=== PATIENT | female | born 1985 | race Caucasian/White ===

== ENCOUNTER 2022-04-19 15:57 | Inpatient (IN) ==
[2022-04-19] MEDS ORDERED: FLUARIX QUADRIVALENT 0.5 ML SYR IM ONE (16:53)
[2022-04-19] MEDS ORDERED: SODIUM CHLORIDE 0.9% 250 ML IV PRN (16:54)
[2022-04-19] MEDS ORDERED: LIDOCAINE 1% LOCAL 20 ML VIAL INFIL PRN (17:56)
[2022-04-19] MEDS ORDERED: OXYTOCIN 30 UNITS/500 ML BAG IV PRN (17:56)
[2022-04-19] MEDS ORDERED: DINOPROSTONE 10 MG INSERT PV ONE (18:12)
--- NOTE | 2022-04-19 18:18 | History & Physical Report ---
Date of Service April 19, 2022 Assessment & Plan Admission and Anticipated Discharge Date Admission Date: April 19, 2022 History of Present Illness Chief Complaint: induction of labor for Class 3 obesity Primary Care Provider: PAM PCP 37 F P1001 at 37 weeks admitted for Class 3 obesity, AMA, history of macrosomia and gestational hypertension Allergies Allergy/AdvReac Type Severity Reaction Status Date / Time cefuroxime [From Ceftin] Allergy Hives Verified 04/19/22 16:13 Home Medications Medication Instructions Recorded Confirmed Type aspirin 81 mg tablet,delayed 81 mg PO DAILY 04/19/22 04/19/22 History release cetirizine 10 mg tablet (Zyrtec) 20 mg PO DAILY 04/19/22 04/19/22 History diphenhydramine HCl 50 mg capsule 50 mg PO HS 04/19/22 04/19/22 History diphenhydramine HCl 50 mg capsule 50 mg PO HS 04/19/22 04/19/22 History (Unisom SleepGels) labetalol 100 mg tablet 100 mg PO BID 04/19/22 04/19/22 History omeprazole 40 mg capsule,delayed 40 mg PO DAILY 04/19/22 04/19/22 History release prenat.vits,delores,ntw-nebc-owtly 1 tab PO DAILY 04/19/22 04/19/22 History sertraline 100 mg tablet (Zoloft) 150 mg PO DAILY 04/19/22 04/19/22 History Patient History Medical History Anxiety Gastroparesis GERD (gastroesophageal reflux disease) H/O retained foreign body fully removed L upper arm Irritable bowel syndrome Surgical History H/O wisdom tooth extraction Hx of cholecystectomy Hx of tonsillectomy Family History Father Myocardial infarction Father Pulmonary fibrosis Social History Smoking Status: Never smoker Hx Alcohol Use: No Hx Substance Use: No Preferred Language: Chinese Communication Ability: Effective Visual Impairment: Partially Limited Hearing Ability: Normal 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 Beliefs That Will Affect Care: None marital status: Current Living Situation Comment: , 1 son and 3 stepsons, 2 dogs and 4 cats current occupational status: employed 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 [place] Other Information That Helps Us Care for You: No Feels Safe at Home: Yes Safety Concerns: Feels Safe At This Time Gender Identity: Female Assistive Devices: Glasses OB History x1 with macrosomia INFANTRYMAN History neg Review of Systems All systems reviewed & are unremarkable except as noted in HPI & below Physical Exam Constitutional: WD/WN, vitals as above Eyes: PERRL, conjunctivae normal, anicteric sclerae Respiratory: normal respiratory effort, lungs clear to auscultation Cardiovascular: RRR, no murmur, no edema Gastrointestinal (Abdomen): normal bowel sounds, soft, nontender, no hepatosplenomegaly Musculoskeletal: Extremities: extremities normal to inspection Skin: no rashes, warm and dry Neurologic: patellar DTR's 2+ bilat, sensation intact Psychiatric: A+Ox3, euthymic affect Genitourinary: OB Exam Abdomen: + estimated weight (9 lbs) Manual OB Exam: + cervical dilation fingertip, + cervical effacement 50% and + station high OB Exam Monitor Tracing: + external FHT monitor used, + external uterine monitor used, + category I and + normal FHT variability Cervix posterior and firm Results & Data ([facility]) Vital Signs (Past 12 Hours) Vital Signs Temp Pulse Resp BP 04/19/22 16:32 36.9 C 20 04/19/22 16:30 117 H 04/19/22 16:30 154/80 H 04/19/22 16:02 36.9 C 125 H 20 135/99 Monitoring External Monitor Cat 1
[2022-04-19 18:19] LABS: Hematocrit (blood only) 37.1 % (34.1-44.9); Hemoglobin 12.4 g/dl (12.0-16.0); Mean Corpuscular Hemoglobin 31.9 pg (25.0-34.0); Mean Corpuscular Hgb Conc 33.4 g/dL (32.0-36.0); Mean Corpuscular Volume 95.4 fL (80.0-100.0); Mean Platelet Volume 12.1 fL (9.4-12.3); Platelet Count 210 K/uL (130-400); RDW Coefficient of Variation 13.7 % (11.5-14.5); RDW Standard Deviation 47.9 fL (36.4-46.3); Red Blood Count 3.89 M/uL (3.93-5.22); White Blood Count 9.35 K/ul (4.8-10.8)
--- NOTE | 2022-04-19 18:30 | Labor Progress Brief Note ---
Date of Service April 19, 2022 Assessment & Plan Admission and Anticipated Discharge Date Admission Date: April 19, 2022 Physical Exam Genitourinary: OB Exam Monitor Tracing: + external FHT monitor used, + external uterine monitor used, + category I and + normal FHT variability Cervidil 10 mg placed vaginally Results & Data ([facility]) Vital Signs (Past 12 Hours) Vital Signs Temp Pulse Resp BP 04/19/22 16:32 36.9 C 20 04/19/22 16:30 117 H 04/19/22 16:30 154/80 H 04/19/22 16:02 36.9 C 125 H 20 135/99
[2022-04-19] MEDS ORDERED: BUTORPHANOL TARTRATE 1 MG/ML VIAL IV PRN (18:31)
[2022-04-19] MEDS ORDERED: LABETALOL HCL IV 5 MG/ML 20ML IV ONE (18:54)
[2022-04-19] MEDS ORDERED: LABETALOL HCL IV 5 MG/ML 20ML IV STA (19:00)
[2022-04-19 19:43] LABS: Alanine Aminotransferase 9 U/L (7-52); Albumin Globulin Ratio 1.1 (0.9-2); Albumin Level 3.3 gm/dl (3.4-5.0); Alkaline Phosphatase 73 U/L (34-104); Anion Gap 10 (3-11); Aspartate Aminotransferase 12 U/L (13-39); BUN Creatinine Ratio 17.8 (10-20); Bilirubin,Total 0.2 mg/dl (0.2-1.0); Blood Urea Nitrogen 8 mg/dl (6-23); Calcium 9.2 mg/dl (8.5-10.1); Carbon Dioxide 22 mmol/L (21-32); Chloride 104 mmol/L (98-107); Creatinine Clr Calc Pharmacy 257.7 ml/min; Est GFR (African American) > 150.0 ml/min; Est GFR (Non-African American) 129.8 ml/min; Glucose 85 mg/dl (70-99(Fasting)); Potassium 4.1 mmol/L (3.5-5.1); Sodium 136 mmol/L (136-145); Total Protein 6.3 gm/dl (6.0-8.3); Uric Acid 5.7 mg/dl (2.6-7.2)
[2022-04-19] MEDS: LABETALOL HCL 100 MG TAB PO SCH (20:15)
[2022-04-19 22:44] LABS: Creatinine Urine Random 116.8 mg/dl; Protein Creatinine Ratio Urine 0.2 (0-0.2); Total Protein Urine Random 25.3 mg/dl (0-11.9)
[2022-04-20] MEDS ORDERED: SERTRALINE HCL 50 MG TABLET PO ONE (08:14)
--- NOTE | 2022-04-20 08:24 | Obstetrical Progress Note ---
Date of Service April 20, 2022 Assessment & Plan Admission and Anticipated Discharge Date Admission Date: April 19, 2022 Subjective Patient is seen and examined. I have reviewed her records from [facility]. She is a 37-year-old -0-0-1 at 37 weeks and 1 day gestation admitted yesterday by Dr. Torre for induction of labor for gestational hypertension, LGA, estimated weight has been measuring more than 99 percentile ultrasounds have been done by [facility]. Patient denies headaches, change in her vision, nausea vomiting, contractions, leakage of fluid, vaginal bleeding. She received Cervidil last night and it was removed this morning. she feels irregular back pain. Patient delivered 8 pound 15 ounce baby 10 years ago with no history of shoulder dystocia. Her last ultrasound with this was 2 weeks ago and baby was measuring 8 pound 14 ounce, over 99th percentile. She had ultrasounds every 4 weeks and they have been all measuring over 99th percentile. I estimated the weight by Tip's over 10 pounds. Performed bedside ultrasound head and abdominal circumference are measuring more than 99 percentile, 41 weeks, Unable to find femur at properly, with smaller measurements, medial weight was 4500 g. I reviewed her ultrasounds and they have been measuring femur significantly smaller than head and abdominal circumference. The plan to order official ultrasound for further measurements. I reviewed her medical, surgical history, She is asking for if baby is large. We discussed that is a major surgery with risks of bleeding infection injury to surrounding organs increased risk of DVT, PE. She states this is her last baby. Vaginal exam, cervix is fingertip, thick, high, unable to feel presenting part. All questions were answered. Results & Data ([facility]) Vital Signs (Past 12 Hours) Vital Signs Temp Pulse Resp BP 04/20/22 06:34 93 H 139/91 04/20/22 04:17 94 H 154/98 H 04/20/22 02:54 18 04/20/22 02:54 37.1 C 18 04/20/22 02:54 18 04/20/22 02:54 37.1 C 18 04/20/22 02:55 88 166/94 H 04/20/22 02:50 97 H 143/89 H 04/20/22 02:19 97 H 142/90 H 04/20/22 01:50 98 H 164/96 H 04/20/22 01:18 94 H 167/99 H 04/20/22 00:39 100 H 139/95 04/19/22 23:37 100 H 132/81 04/19/22 22:46 18 04/19/22 22:46 37.3 C 18 04/19/22 22:45 97 H 164/92 H 04/19/22 22:34 100 H 164/90 H 04/19/22 22:18 106 H 161/84 H 04/19/22 22:03 103 H 160/86 H 04/19/22 21:48 102 H 159/87 H 04/19/22 21:32 104 H 177/99 H 04/19/22 20:39 103 H 165/92 H 04/19/22 20:35 99 H 156/89 H 04/19/22 20:25 103 H 146/94 H
[2022-04-20] MEDS: LABETALOL HCL 100 MG TAB PO SCH ×2 (08:36→20:42)
--- NOTE | 2022-04-20 09:45 | Obstetrical Progress Note ---
Date of Service April 20, 2022 Assessment & Plan Admission and Anticipated Discharge Date Admission Date: April 19, 2022 Subjective Patient is back from [place]. EFW: 4307 gr +/- 600+ grams Discussed ACOG recommendation of trial of if estimated weight is less than 5000 g without diabetes and 4500 g with diabetes. Patient was tested/screened for gestational diabetes x2 and both were negative. Discussed ultrasound is not 100%, there is up to 15% error rate. Discussed trial of , induction of labor with prostaglandins and what to expect. Patient understands C section is a major surgery, with risks including but not limited to bleeding , infection, injury to surrounding organs like bowels, bladder, ureters, adhesions, scarring, wound infection, blood cloths in legs/ lungs, longer recovery. She wants to think about it and decide. All questions were answered. Results & Data ([facility]) Vital Signs (Past 12 Hours) Vital Signs Temp Pulse Resp BP 04/20/22 08:33 22 04/20/22 08:33 37.2 C 22 04/20/22 08:35 108 H 164/79 H 04/20/22 06:34 93 H 139/91 04/20/22 04:17 94 H 154/98 H 04/20/22 02:54 18 04/20/22 02:54 37.1 C 18 04/20/22 02:54 18 04/20/22 02:54 37.1 C 18 04/20/22 02:55 88 166/94 H 04/20/22 02:50 97 H 143/89 H 04/20/22 02:19 97 H 142/90 H 04/20/22 01:50 98 H 164/96 H 04/20/22 01:18 94 H 167/99 H 04/20/22 00:39 100 H 139/95 04/19/22 23:37 100 H 132/81 04/19/22 22:46 18 04/19/22 22:46 37.3 C 18 04/19/22 22:45 97 H 164/92 H 04/19/22 22:34 100 H 164/90 H 04/19/22 22:18 106 H 161/84 H 04/19/22 22:03 103 H 160/86 H 04/19/22 21:48 102 H 159/87 H
[2022-04-20] MEDS ORDERED: BUTORPHANOL TARTRATE 1 MG/ML VIAL IV PRN (10:25)
--- NOTE | 2022-04-20 10:25 | Obstetrical Progress Note ---
Date of Service April 20, 2022 Assessment & Plan Admission and Anticipated Discharge Date Admission Date: April 19, 2022 Subjective After discussing risks and benefits of each route of delivery patient decided for trial of labor. We discussed the risks of shoulder dystocia and unpredictability of it. Plan to have her breakfast and start PO Cytotec. Results & Data ([facility]) Vital Signs (Past 12 Hours) Vital Signs Temp Pulse Resp BP 04/20/22 08:33 22 04/20/22 08:33 37.2 C 22 04/20/22 08:35 108 H 164/79 H 04/20/22 06:34 93 H 139/91 04/20/22 04:17 94 H 154/98 H 04/20/22 02:54 18 04/20/22 02:54 37.1 C 18 04/20/22 02:54 18 04/20/22 02:54 37.1 C 18 04/20/22 02:55 88 166/94 H 04/20/22 02:50 97 H 143/89 H 04/20/22 02:19 97 H 142/90 H 04/20/22 01:50 98 H 164/96 H 04/20/22 01:18 94 H 167/99 H 04/20/22 00:39 100 H 139/95 04/19/22 23:37 100 H 132/81 04/19/22 22:46 18 04/19/22 22:46 37.3 C 18 04/19/22 22:45 97 H 164/92 H 04/19/22 22:34 100 H 164/90 H
--- NOTE | 2022-04-20 10:35 | Ultrasound Report ---
US OB limited HISTORY: 37 years-old Female Large for GA, >99th percentile COMPARISON: None TECHNIQUE: Multiple real-time sonographic images of the deep pelvic structures were obtained transabd ominally assessing grayscale appearance FINDINGS: Single living intrauterine gestation with heart rate of 143 bpm in cephalic positioning. BPD is 10.01 cm, 41 weeks 1 day. Head circumference is 37.06 cm. Abdominal circumference is 37.61 cm, 41 we eks 4 days. Femur length is 7.39 cm, 37 weeks 6 days. Estimated weight is 4306 g (9 lbs. 8 oz.) . kidneys measure up to 5.1 cm. IMPRESSION: Single living intrauterine gestation in cephalic positioning with measurements as a tomy. ACT 112: Negative or not required by law. The above report was generated using voice recognition software. It may contain grammatical, syntax o r spelling errors. Electronically signed by: Rashaun Espinal M.D. 04/20/2022 10:34 AM
[2022-04-20] MEDS: miSOPROStoL 50 MCG TAB PO SCH ×4 (11:49→20:15)
[2022-04-20] MEDS ORDERED: PANTOprazole 40 MG TAB PO ONE (19:30)
--- NOTE | 2022-04-20 22:38 | Obstetrical Progress Note ---
Date of Service April 20, 2022 Assessment & Plan Admission and Anticipated Discharge Date Admission Date: April 19, 2022 Subjective Attempted to see her now ut was told by her nurse that she is sleeping and is due for monitoring at 23:15. She received 3 doses of Cytotec and ambulated in hallways for the most of the day. FHR categ I Will check her at 23: [address] coyle bulb and start Oxytocin Results & Data ([facility]) Vital Signs (Past 12 Hours) Vital Signs Temp Pulse Resp BP O2 Del Method 04/20/22 19:03 18 04/20/22 19:03 Room Air 04/20/22 16:16 37.2 C 20 04/20/22 21:00 18 04/20/22 21:00 36.4 C L 18 04/20/22 20:42 90 143/72 H 04/20/22 19:01 100 H 164/82 H 04/20/22 15:57 107 H 145/82 H 04/20/22 15:24 105 H 144/85 H 04/20/22 14:19 108 H 162/90 H 04/20/22 11:48 37.1 C 109 H 20 143/87 H
[2022-04-20] MEDS ORDERED: OXYTOCIN 30 UNITS/500 ML BAG IV PRN (23:21)
[2022-04-21] MEDS: LACTATED RINGER'S 1,000 ML IV PRN ×3 (00:30→12:31)
[2022-04-21] MEDS ORDERED: OXYTOCIN 30 UNITS/500 ML BAG IV PRN ×2 (00:48→22:16)
--- NOTE | 2022-04-21 00:51 | Obstetrical Progress Note ---
Date of Service April 21, 2022 Assessment & Plan Admission and Anticipated Discharge Date Admission Date: April 19, 2022 Subjective Patient was placed in lithotomy position and spekulum was placed in vagina. Cervix was seen and cleaned with Betadinex3. 22 F catheter is placed into cervical canal and inflated with 40 ml of sterile water. FHR categ I Plan to start low dose Oxytocin per protocol. Continue to monitor closely. Results & Data ([facility]) Vital Signs (Past 12 Hours) Vital Signs Temp Pulse Resp BP O2 Del Method 04/20/22 19:03 18 04/20/22 19:03 Room Air 04/20/22 16:16 37.2 C 20 04/21/22 00:32 96 H 134/72 04/20/22 21:00 18 04/20/22 21:00 36.4 C L 18 04/20/22 20:42 90 143/72 H 04/20/22 19:01 100 H 164/82 H 04/20/22 15:57 107 H 145/82 H 04/20/22 15:24 105 H 144/85 H 04/20/22 14:19 108 H 162/90 H
[2022-04-21] MEDS: miSOPROStoL 50 MCG TAB PO SCH ×3 (01:09→16:07)
--- NOTE | 2022-04-21 07:45 | Obstetrical Progress Note ---
Date of Service April 21, 2022 Assessment & Plan Admission and Anticipated Discharge Date Admission Date: April 19, 2022 Subjective Patient is reevaluated She is painful and asking for epidural. Burns bulb came out at 03;35 She has been on Oxytocin and has received Stadol one time. FHR categ I VE; 3-4 cm/ 50%/ -4 Epidural for pain and continue raising Oxytocin after Continue to monitor closely Results & Data ([facility]) Vital Signs (Past 12 Hours) Vital Signs Temp Pulse Resp BP Pulse Ox 04/21/22 07:15 36.9 C 20 04/21/22 07:38 89 96 04/21/22 07:34 92 H 86 L 04/21/22 07:33 92 H 96 04/21/22 07:28 95 H 96 04/21/22 07:23 96 H 96 04/21/22 07:18 101 H 95 04/21/22 07:13 90 97 04/21/22 07:10 90 147/80 H 04/21/22 07:08 94 H 96 04/21/22 07:03 95 H 98 04/21/22 06:58 91 H 96 04/21/22 06:53 93 H 97 04/21/22 06:48 90 98 04/21/22 06:43 92 H 97 04/21/22 06:38 95 H 98 04/21/22 06:24 89 100 04/21/22 06:23 90 143/74 H 04/21/22 06:19 94 H 98 04/21/22 06:14 90 98 04/21/22 06:09 89 96 04/21/22 06:04 90 97 04/21/22 06:00 18 04/21/22 06:00 18 04/21/22 05:59 91 H 95 04/21/22 05:30 18 04/21/22 05:30 18 04/21/22 05:54 86 95 04/21/22 05:49 92 H 93 04/21/22 05:44 88 95 04/21/22 05:39 94 H 94 04/21/22 05:34 93 H 94 04/21/22 05:29 91 H 95 04/21/22 05:00 18 04/21/22 05:00 18 04/21/22 05:24 88 95 04/21/22 05:19 93 H 94 04/21/22 05:14 91 H 94 04/21/22 05:09 94 H 94 04/21/22 05:06 86 159/84 H 04/21/22 05:05 95 H 94 04/21/22 05:04 92 H 96 04/21/22 04:59 86 93 04/21/22 04:54 90 93 04/21/22 04:49 88 92 04/21/22 04:44 91 H 92 04/21/22 04:39 90 93 04/21/22 04:30 18 04/21/22 04:30 18 04/21/22 04:34 83 93 04/21/22 04:29 85 93 04/21/22 04:24 86 92 04/21/22 04:19 79 93 04/21/22 04:14 75 93 04/21/22 04:05 18 04/21/22 04:05 18 04/21/22 04:11 84 94 04/21/22 04:09 95 H 97 04/21/22 04:04 93 H 97 04/21/22 03:50 20 04/21/22 03:50 36.7 C 20 04/21/22 03:49 96 H 136/79 04/21/22 02:30 20 04/21/22 02:30 20 04/21/22 02:31 88 140/67 04/21/22 02:00 18 04/21/22 02:00 18 04/21/22 01:30 18 04/21/22 01:30 18 04/21/22 01:32 77 137/74 04/21/22 01:00 18 04/21/22 01:00 18 04/21/22 00:32 96 H 134/72 04/20/22 21:00 18 04/20/22 21:00 36.4 C L 18 04/20/22 20:42 90 143/72 H
[2022-04-21] MEDS ORDERED: SODIUM CHLORIDE 0.9% INJ 10 ML VIAL ONE (08:19)
[2022-04-21] MEDS ORDERED: BUPIVACAINE 0.25% 30 ML VIAL ONE (08:19)
[2022-04-21] MEDS ORDERED: fentaNYL citrate 100 MCG/2 ML VIAL ONE (08:19)
[2022-04-21] MEDS ORDERED: LIDOCAINE 2%/EPINEPHRINE 1:200,000 20 ML SDV ONE (08:19)
[2022-04-21] MEDS ORDERED: ePHEDrine sulfate 50 MG/ML AMP ONE (08:19)
[2022-04-21] MEDS ORDERED: fentaNYL 2MCG/ML ROPIVACAINE 1.25MG/ML 100 ML BAG EPI ONE (08:20)
[2022-04-21] MEDS ORDERED: HYDROmorphone INJ 2 MG/ML SYR/VIAL IV PRN (08:43)
[2022-04-21] MEDS ORDERED: fentaNYL citrate 100 MCG/2 ML VIAL IV PRN (08:43)
[2022-04-21] MEDS ORDERED: ATROPINE SULFATE 0.1 MG/ML 10ML SYR IV PRN (08:43)
[2022-04-21] MEDS ORDERED: ePHEDrine sulfate 50 MG/ML AMP IV PRN ×2 (08:43→08:46)
[2022-04-21] MEDS ORDERED: ONDANSETRON INJ 2 MG/ML 2 ML VIAL IV PRN ×2 (08:43→08:46)
--- NOTE | 2022-04-21 08:43 | Anesthesiology Consultation ---
Date of Service April 21, 2022 Assessment & Plan ASA ASA3 Proposed Anesthesia Anesthesia Type: Labor Epidural Risk / Benefits Reviewed With: PT / POA / Parent / Guardian, Accepts Plan and Informed Consent Obtained History Height/Weight Height: 5 ft 2 in Weight: 158.757 kg Allergies Allergy/AdvReac Type Severity Reaction Status Date / Time cefuroxime [From Ceftin] Allergy Hives Verified 04/19/22 16:13 Medications Home Medications Medication Instructions Recorded Confirmed Last Taken aspirin 81 mg tablet,delayed 81 mg PO DAILY 04/19/22 04/19/22 04/18/22 21:00 release cetirizine 10 mg tablet (Zyrtec) 20 mg PO DAILY 04/19/22 04/19/22 04/18/22 21:00 diphenhydramine HCl 50 mg capsule 50 mg PO HS 04/19/22 04/19/22 04/18/22 21:00 diphenhydramine HCl 50 mg capsule 50 mg PO HS 04/19/22 04/19/22 04/18/22 21:00 (Unisom SleepGels) labetalol 100 mg tablet 100 mg PO BID 04/19/22 04/19/22 04/18/22 21:00 omeprazole 40 mg capsule,delayed 40 mg PO DAILY 04/19/22 04/19/22 04/18/22 21:00 release prenat.vits,delores,klq-xmam-jjfgk 1 tab PO DAILY 04/19/22 04/19/22 04/18/22 21:00 sertraline 100 mg tablet (Zoloft) 150 mg PO DAILY 04/19/22 04/19/22 04/18/22 21:00 Active Medications Generic Name Dose Route Start Last Admin Trade Name Freq PRN Reason Stop Dose Admin Butorphanol Tartrate 1 mg 04/20/22 10:25 04/21/22 04:06 Butorphanol Tartrate 1 Mg/Ml Vial IV 05/20/22 10:24 1 mg Q2HWA PRN Administration Pain Lactated Ringer's 1,000 mls @ 125 mls/hr 04/19/22 17:56 04/21/22 09:13 Lr IV 04/21/22 17:55 Infused .Q8H PRN Infusion L&D Protocol Protocol Oxytocin 30 units in 500 mls @ 7 mls/hr 04/21/22 00:48 10/22/22 06:45 Pitocin IV 04/23/22 00:47 0.42 units/hr .Q24H PRN 7 mls/hr Labor Induction/Augmentation Titration Protocol 0.42 UNITS/HR Labetalol HCl 100 mg 04/19/22 21:00 04/20/22 20:42 Labetalol Hcl 100 Mg Tab PO 05/19/22 20:59 100 mg BID SHARRON Administration Misoprostol 50 mcg 04/20/22 11:00 04/21/22 04:13 Misoprostol 50 Mcg Tab PO 05/20/22 10:59 Not Given Q4 SHARRON Ropivacaine 100 ml 04/21/22 08:46 04/21/22 09:14 Fentanyl 2mcg/Ml Ropivacaine 1.25mg/Ml 100 Ml Bag EPI 04/22/22 08:45 100 ml PRN PRN Administration Pain R/T Labor Protocol Sertraline HCl 150 mg 04/21/22 09:00 04/21/22 09:29 Sertraline Hcl 50 Mg Tablet PO 05/21/22 08:59 150 mg QAM SHARRON Administration Past Medical History Medical History Anxiety Gastroparesis GERD (gastroesophageal reflux disease) H/O retained foreign body fully removed L upper arm Irritable bowel syndrome Exercise / Class Metabolic Activity II 4-5 Yardwork/Stairs/Walk up hill Past Family History Family History Father Myocardial infarction Father Pulmonary fibrosis Past Surgical History Surgical History H/O wisdom tooth extraction Hx of cholecystectomy Hx of tonsillectomy Past Anesthesia History No Hx of Anesthesia Complications and No Family Hx of Anesthesia Complications History of PONV No Hx of PONV and No Hx of Motion Sickness Social History Smoking Status: Never smoker Hx Alcohol Use: No Hx Substance Use: No substance use type: does not use Review of Systems denies fever/cough/ colds/ chest pain/ SOB/ RISA denies RISA Physical Exam Vital Signs Last Vital Signs Temp 36.9 C 04/21/22 07:15 Pulse 95 H 04/21/22 09:50 Resp 20 04/21/22 07:15 BP 129/73 04/21/22 09:43 Pulse Ox 93 04/21/22 09:50 O2 Del Method 04/20/22 19:03 ENMT Mouth: no TMJ abnormality and no dentition abnormality Thyromental Distance: > or= 3.5 Finger Breadths Mallampati Class: II Neck neck extension not limited Respiratory normal respiratory effort; no respiratory distress Auscultation: lungs clear to auscultation bilaterally Cardiovascular Rate/Rhythm: regular rate and regular rhythm Neurologic moves all extremities Psychiatric Orientation: alert and oriented x 3 Testing Laboratory Results 04/19/22 17:05 04/19/22 18:59 Blood Type A Positive 04/19/22 17:05 Antibody Screen NEGATIVE 04/19/22 17:05
[2022-04-21] MEDS ORDERED: NALBUPHINE HCL INJ 10 MG/ML AMP IV PRN (08:46)
[2022-04-21] MEDS ORDERED: NALOXONE HCL 1 MG in SODIUM CHLORIDE 0.9% 1000ML 1,000 ML IV PRN (08:46)
[2022-04-21] MEDS ORDERED: NALOXONE HCL 0.4 MG/1 ML VIAL/CARP IV PRN (08:46)
[2022-04-21] MEDS ORDERED: diphenhydrAMINE 50 MG/ML VIAL IV PRN (08:46)
[2022-04-21] MEDS: fentaNYL 2MCG/ML ROPIVACAINE 1.25MG/ML 100 ML BAG EPI PRN ×3 (09:14→21:36)
[2022-04-21] MEDS: SERTRALINE HCL 50 MG TABLET PO SCH (09:29)
[2022-04-21] MEDS: LABETALOL HCL 100 MG TAB PO SCH ×2 (10:13→22:32)
--- NOTE | 2022-04-21 14:49 | Labor Progress Brief Note ---
Date of Service April 21, 2022 Assessment & Plan Admission and Anticipated Discharge Date Admission Date: April 19, 2022 Physical Exam Genitourinary: Manual OB Exam: + cervical dilation 3 cm and 4 cm, + cervical effacement 60% and + station high OB Exam Monitor Tracing: + external FHT monitor used, + external uterine monitor used, + category I and + normal FHT variability Results & Data ([facility]) Vital Signs (Past 12 Hours) Vital Signs Temp Pulse Resp BP Pulse Ox 04/21/22 07:15 36.9 C 20 04/21/22 14:48 101 H 96 04/21/22 14:44 100 H 151/74 H 04/21/22 14:43 88 151/68 H 96 04/21/22 14:38 100 H 95 04/21/22 14:33 93 H 96 04/21/22 14:28 99 H 96 04/21/22 14:29 95 H 151/72 H 04/21/22 14:23 89 96 04/21/22 14:18 85 94 04/21/22 14:14 92 H 142/69 H 04/21/22 14:13 95 H 93 04/21/22 14:08 89 94 04/21/22 14:03 90 95 04/21/22 13:58 85 04/21/22 13:58 87 133/64 94 04/21/22 13:53 96 H 93 04/21/22 13:48 91 H 94 04/21/22 13:44 112 H 140/108 H 04/21/22 13:43 102 H 95 04/21/22 13:41 89 89 L 04/21/22 13:38 98 H 87 L 04/21/22 13:36 83 89 L 04/21/22 13:33 104 H 95 04/21/22 13:30 79 14 85 L 04/21/22 13:28 106 H 04/21/22 13:28 92 H 145/77 H 88 L 04/21/22 13:24 94 H 88 L 04/21/22 13:23 98 H 94 04/21/22 13:19 99 H 88 L 04/21/22 13:18 97 H 90 04/21/22 13:14 89 144/75 H 04/21/22 13:13 91 H 96 04/21/22 13:08 94 H 96 04/21/22 13:03 94 H 96 04/21/22 12:58 103 H 04/21/22 12:58 93 H 146/68 H 96 04/21/22 12:53 94 H 95 04/21/22 12:48 93 H 96 04/21/22 12:43 87 138/67 96 04/21/22 12:38 92 H 94 04/21/22 12:33 108 H 97 04/21/22 12:28 95 H 151/73 H 04/21/22 12:13 88 134/74 04/21/22 12:00 16 04/21/22 12:00 16 04/21/22 11:58 86 132/72 04/21/22 11:45 36.6 C 97 H 100 04/21/22 11:42 114 H 84 L 04/21/22 11:40 103 H 98 04/21/22 11:35 105 H 100 04/21/22 11:30 102 H 16 132/70 98 04/21/22 11:25 93 H 97 04/21/22 11:20 109 H 98 04/21/22 11:15 104 H 98 04/21/22 11:13 109 H 122/62 04/21/22 11:10 106 H 98 04/21/22 11:05 103 H 99 04/21/22 11:00 91 H 16 94 04/21/22 10:58 116 H 119/65 04/21/22 10:55 112 H 97 04/21/22 10:50 117 H 97 04/21/22 10:45 114 H 99 04/21/22 10:43 106 H 126/73 04/21/22 10:40 115 H 97 04/21/22 10:35 100 H 95 04/21/22 10:30 109 H 20 96 04/21/22 10:29 96 H 130/72 04/21/22 10:25 106 H 96 04/21/22 10:20 108 H 97 04/21/22 10:15 96 H 94 04/21/22 10:13 110 H 124/71 04/21/22 10:10 108 H 95 04/21/22 10:05 114 H 96 04/21/22 10:00 113 H 95 04/21/22 09:58 96 H 131/76 04/21/22 09:55 104 H 93 04/21/22 09:50 95 H 93 04/21/22 09:45 112 H 97 04/21/22 09:43 113 H 129/73 04/21/22 09:40 115 H 123/75 99 04/21/22 09:39 114 H 123/74 04/21/22 09:35 118 H 96 04/21/22 09:34 108 H 127/68 04/21/22 09:31 114 H 144/74 H 04/21/22 09:30 112 H 98 04/21/22 09:28 113 H 117/74 04/21/22 09:26 105 H 128/71 04/21/22 09:25 101 H 97 04/21/22 09:24 107 H 130/70 04/21/22 09:22 109 H 128/69 04/21/22 09:20 98 H 136/76 97 04/21/22 09:18 115 H 141/71 H 04/21/22 09:16 105 H 156/96 H 04/21/22 09:15 102 H 96 04/21/22 09:14 96 H 158/77 H 04/21/22 09:12 98 H 172/77 H 04/21/22 09:10 99 H 96 04/21/22 09:05 94 H 04/21/22 09:05 168/92 H 04/21/22 09:05 94 H 180/103 H 96 04/21/22 09:00 95 H 18 97 04/21/22 08:55 113 H 95 04/21/22 08:54 94 H 83 L 04/21/22 08:50 90 95 04/21/22 08:45 98 H 96 04/21/22 08:40 90 98 04/21/22 08:35 91 H 98 04/21/22 08:30 95 H 97 04/21/22 08:25 98 H 98 04/21/22 08:20 97 H 97 04/21/22 08:15 102 H 98 04/21/22 08:10 103 H 97 04/21/22 08:05 102 H 95 04/21/22 07:38 89 96 04/21/22 07:34 92 H 86 L 04/21/22 07:33 92 H 96 04/21/22 07:28 95 H 96 04/21/22 07:23 96 H 96 04/21/22 07:18 101 H 95 04/21/22 07:13 90 97 04/21/22 07:10 90 147/80 H 04/21/22 07:08 94 H 96 04/21/22 07:03 95 H 98 04/21/22 06:58 91 H 96 04/21/22 06:53 93 H 97 04/21/22 06:48 90 98 04/21/22 06:43 92 H 97 04/21/22 06:38 95 H 98 04/21/22 06:24 89 100 04/21/22 06:23 90 143/74 H 04/21/22 06:19 94 H 98 04/21/22 06:14 90 98 04/21/22 06:09 89 96 04/21/22 06:04 90 97 04/21/22 06:00 18 04/21/22 06:00 18 04/21/22 05:59 91 H 95 04/21/22 05:30 18 04/21/22 05:30 18 04/21/22 05:54 86 95 04/21/22 05:49 92 H 93 04/21/22 05:44 88 95 04/21/22 05:39 94 H 94 04/21/22 05:34 93 H 94 04/21/22 05:29 91 H 95 04/21/22 05:00 18 04/21/22 05:00 18 04/21/22 05:24 88 95 04/21/22 05:19 93 H 94 04/21/22 05:14 91 H 94 04/21/22 05:09 94 H 94 04/21/22 05:06 86 159/84 H 04/21/22 05:05 95 H 94 04/21/22 05:04 92 H 96 04/21/22 04:59 86 93 04/21/22 04:54 90 93 04/21/22 04:49 88 92 04/21/22 04:44 91 H 92 04/21/22 04:39 90 93 04/21/22 04:30 18 04/21/22 04:30 18 04/21/22 04:34 83 93 04/21/22 04:29 85 93 04/21/22 04:24 86 92 04/21/22 04:19 79 93 04/21/22 04:14 75 93 04/21/22 04:05 18 04/21/22 04:05 18 04/21/22 04:11 84 94 04/21/22 04:09 95 H 97 04/21/22 04:04 93 H 97 04/21/22 03:50 20 04/21/22 03:50 36.7 C 20 04/21/22 03:49 96 H 136/79
--- NOTE | 2022-04-21 19:27 | Labor Progress Brief Note ---
Date of Service April 21, 2022 Assessment & Plan Admission and Anticipated Discharge Date Admission Date: April 19, 2022 Physical Exam Genitourinary: Manual OB Exam: + cervical dilation 3 cm and 4 cm, + cervical effacement 70%, + station -2 and + amniotic fluid clear OB Exam Monitor Tracing: + external FHT monitor used, + external uterine monitor used, + category I and + normal FHT variability AROM with Amni-hook clear fluid Results & Data ([facility]) Vital Signs (Past 12 Hours) Vital Signs Temp Pulse Resp BP Pulse Ox 04/21/22 19:03 36.7 C 20 04/21/22 19:23 87 98 04/21/22 19:18 89 97 04/21/22 19:13 88 97 04/21/22 19:08 90 97 04/21/22 19:03 97 H 96 04/21/22 19:00 95 H 128/74 04/21/22 18:58 95 H 97 04/21/22 18:53 91 H 96 04/21/22 15:35 37.0 C 04/21/22 18:48 90 96 04/21/22 18:44 90 141/81 H 04/21/22 18:43 93 H 94 04/21/22 18:38 95 H 95 04/21/22 18:33 98 H 95 04/21/22 18:28 90 04/21/22 18:00 14 04/21/22 18:00 14 04/21/22 18:28 92 H 142/74 H 94 04/21/22 18:23 98 H 93 04/21/22 18:18 96 H 92 04/21/22 18:14 92 H 136/73 04/21/22 18:13 96 H 94 04/21/22 18:08 97 H 94 04/21/22 18:03 102 H 96 04/21/22 17:59 97 H 131/72 04/21/22 17:58 101 H 94 04/21/22 17:53 93 H 95 04/21/22 17:48 99 H 95 04/21/22 17:44 90 141/74 H 04/21/22 17:00 18 04/21/22 17:00 18 04/21/22 17:43 97 H 95 04/21/22 17:30 18 04/21/22 17:30 18 04/21/22 17:38 105 H 95 04/21/22 17:33 96 H 95 04/21/22 17:28 93 H 04/21/22 17:28 92 H 127/65 94 04/21/22 17:23 98 H 94 04/21/22 17:18 98 H 94 04/21/22 17:15 93 H 132/73 04/21/22 17:13 98 H 94 04/21/22 17:08 95 H 95 04/21/22 17:03 105 H 95 04/21/22 16:58 99 H 135/78 95 04/21/22 16:53 92 H 94 04/21/22 16:48 102 H 94 04/21/22 16:44 93 H 136/78 04/21/22 16:43 96 H 95 04/21/22 16:38 101 H 94 04/21/22 16:33 97 H 94 04/21/22 16:29 92 H 141/76 H 04/21/22 16:28 98 H 95 04/21/22 16:00 18 04/21/22 16:00 18 04/21/22 16:23 110 H 95 04/21/22 16:18 105 H 96 04/21/22 16:13 105 H 04/21/22 16:13 107 H 133/83 96 04/21/22 16:08 96 H 95 04/21/22 16:03 108 H 96 04/21/22 15:58 98 H 97 04/21/22 15:53 100 H 94 04/21/22 15:48 101 H 95 04/21/22 15:43 97 H 04/21/22 15:43 107 H 147/71 H 97 04/21/22 15:38 92 H 96 04/21/22 15:33 103 H 96 04/21/22 15:29 97 H 132/67 04/21/22 15:30 96 H 137/68 04/21/22 15:28 98 H 96 04/21/22 15:00 16 04/21/22 15:00 16 04/21/22 15:23 105 H 97 04/21/22 15:18 94 H 97 04/21/22 15:13 100 H 04/21/22 15:13 106 H 150/79 H 95 04/21/22 15:08 106 H 96 04/21/22 15:03 98 H 95 04/21/22 14:58 97 H 146/70 H 95 04/21/22 14:53 106 H 95 04/21/22 14:48 101 H 96 04/21/22 14:44 100 H 151/74 H 04/21/22 14:43 88 151/68 H 96 04/21/22 14:38 100 H 95 04/21/22 14:33 93 H 96 04/21/22 14:28 99 H 96 04/21/22 14:29 95 H 151/72 H 04/21/22 14:23 89 96 04/21/22 14:18 85 94 04/21/22 14:14 92 H 142/69 H 04/21/22 14:13 95 H 93 04/21/22 14:08 89 94 04/21/22 14:03 90 95 04/21/22 13:58 85 04/21/22 13:58 87 133/64 94 04/21/22 13:53 96 H 93 04/21/22 13:48 91 H 94 04/21/22 13:44 112 H 140/108 H 04/21/22 13:43 102 H 95 04/21/22 13:41 89 89 L 04/21/22 13:38 98 H 87 L 04/21/22 13:36 83 89 L 04/21/22 13:33 104 H 95 04/21/22 13:30 79 14 85 L 04/21/22 13:28 106 H 04/21/22 13:28 92 H 145/77 H 88 L 04/21/22 13:24 94 H 88 L 04/21/22 13:23 98 H 94 04/21/22 13:19 99 H 88 L 04/21/22 13:18 97 H 90 04/21/22 13:14 89 144/75 H 04/21/22 13:13 91 H 96 04/21/22 13:08 94 H 96 04/21/22 13:03 94 H 96 04/21/22 12:58 103 H 04/21/22 12:58 93 H 146/68 H 96 04/21/22 12:53 94 H 95 04/21/22 12:48 93 H 96 04/21/22 12:43 87 138/67 96 04/21/22 12:38 92 H 94 04/21/22 12:33 108 H 97 04/21/22 12:28 95 H 151/73 H 04/21/22 12:13 88 134/74 04/21/22 12:00 16 04/21/22 12:00 16 04/21/22 11:58 86 132/72 04/21/22 11:45 36.6 C 97 H 100 04/21/22 11:42 114 H 84 L 04/21/22 11:40 103 H 98 04/21/22 11:35 105 H 100 04/21/22 11:30 102 H 16 132/70 98 04/21/22 11:25 93 H 97 04/21/22 11:20 109 H 98 04/21/22 11:15 104 H 98 04/21/22 11:13 109 H 122/62 04/21/22 11:10 106 H 98 04/21/22 11:05 103 H 99 04/21/22 11:00 91 H 16 94 04/21/22 10:58 116 H 119/65 04/21/22 10:55 112 H 97 04/21/22 10:50 117 H 97 04/21/22 10:45 114 H 99 04/21/22 10:43 106 H 126/73 04/21/22 10:40 115 H 97 04/21/22 10:35 100 H 95 04/21/22 10:30 109 H 20 96 04/21/22 10:29 96 H 130/72 04/21/22 10:25 106 H 96 04/21/22 10:20 108 H 97 04/21/22 10:15 96 H 94 04/21/22 10:13 110 H 124/71 04/21/22 10:10 108 H 95 04/21/22 10:05 114 H 96 04/21/22 10:00 113 H 95 04/21/22 09:58 96 H 131/76 04/21/22 09:55 104 H 93 04/21/22 09:50 95 H 93 04/21/22 09:45 112 H 97 04/21/22 09:43 113 H 129/73 04/21/22 09:40 115 H 123/75 99 04/21/22 09:39 114 H 123/74 04/21/22 09:35 118 H 96 04/21/22 09:34 108 H 127/68 04/21/22 09:31 114 H 144/74 H 04/21/22 09:30 112 H 98 04/21/22 09:28 113 H 117/74 04/21/22 09:26 105 H 128/71 04/21/22 09:25 101 H 97 04/21/22 09:24 107 H 130/70 04/21/22 09:22 109 H 128/69 04/21/22 09:20 98 H 136/76 97 04/21/22 09:18 115 H 141/71 H 04/21/22 09:16 105 H 156/96 H 04/21/22 09:15 102 H 96 04/21/22 09:14 96 H 158/77 H 04/21/22 09:12 98 H 172/77 H 04/21/22 09:10 99 H 96 04/21/22 09:05 94 H 04/21/22 09:05 168/92 H 04/21/22 09:05 94 H 180/103 H 96 04/21/22 09:00 95 H 18 97 04/21/22 08:55 113 H 95 04/21/22 08:54 94 H 83 L 04/21/22 08:50 90 95 04/21/22 08:45 98 H 96 04/21/22 08:40 90 98 04/21/22 08:35 91 H 98 04/21/22 08:30 95 H 97 04/21/22 08:25 98 H 98 04/21/22 08:20 97 H 97 04/21/22 08:15 102 H 98 04/21/22 08:10 103 H 97 04/21/22 08:05 102 H 95 04/21/22 07:38 89 96 04/21/22 07:34 92 H 86 L 04/21/22 07:33 92 H 96 04/21/22 07:28 95 H 96
[2022-04-21] MEDS ORDERED: bisacodyL 10 MG SUPP PR PRN (22:16)
[2022-04-21] MEDS ORDERED: ACETAMINOPHEN 325 MG TAB PO PRN (22:16)
[2022-04-21] MEDS ORDERED: DIPHTHERIA/TETANUS/PERTUSSIS 0.5 ML SYR/VIAL IM ONE (22:16)
[2022-04-21] MEDS ORDERED: HYDROCORTISONE ACETATE 25 MG SUPP PR PRN (22:16)
[2022-04-21] MEDS ORDERED: BENZOCAINE 20% AER SPR 82.5 GM CAN EXT PRN (22:16)
--- NOTE | 2022-04-21 22:16 | Delivery Summary ---
Vaginal Delivery Summary Date of Service April 21, 2022 Vaginal Delivery Summary Delivery note live male over intact perineum with tight nuchal cord x1 reduced on perineum with delayed cord clamping and Apgars 7/8 weight pending. Cord blood obtained followed by spontaneous delivery of intact placenta. No tears. EBL 100 ml. Final sponge and instrument count are correct. Mom and baby stable.
[2022-04-21] MEDS ORDERED: LABETALOL HCL 100 MG TAB PO ONE (23:13)
[2022-04-21] MEDS: IBUPROFEN 600 MG TAB PO PRN (23:33)
[2022-04-22 07:42] LABS: Hematocrit (blood only) 32.3 % (34.1-44.9); Hemoglobin 10.6 g/dl (12.0-16.0); Mean Corpuscular Hemoglobin 31.7 pg (25.0-34.0); Mean Corpuscular Hgb Conc 32.8 g/dL (32.0-36.0); Mean Corpuscular Volume 96.7 fL (80.0-100.0); Mean Platelet Volume 11.4 fL (9.4-12.3); Platelet Count 175 K/uL (130-400); RDW Standard Deviation 49.7 fL (36.4-46.3); Red Blood Count 3.34 M/uL (3.93-5.22); White Blood Count 10.42 K/ul (4.8-10.8)
[2022-04-22] MEDS: DOCUSATE SODIUM 100 MG CAP PO SCH ×2 (08:19→20:58)
[2022-04-22] MEDS: PRENATAL VITAMIN 1 TAB PO SCH (08:19)
[2022-04-22] MEDS: LABETALOL HCL 100 MG TAB PO SCH ×2 (08:19→20:58)
[2022-04-22] MEDS: FERROUS SULFATE 325 MG TAB PO SCH (08:19)
[2022-04-22] MEDS: PANTOprazole 40 MG TAB PO SCH (08:20)
[2022-04-22] MEDS: SERTRALINE HCL 50 MG TABLET PO SCH (08:21)
[2022-04-22] MEDS: IBUPROFEN 600 MG TAB PO PRN (08:21)
[2022-04-22] MEDS ORDERED: LABETALOL HCL 100 MG TAB PO SCH (09:00)
[2022-04-22] MEDS ORDERED: SERTRALINE HCL 50 MG TABLET PO SCH (09:00)
[2022-04-22] MEDS ORDERED: NON-FORMULARY MEDICATION (Prenat.Vits,Cal,Min-Iron-Folic Tablet) PO SCH (09:00)
--- NOTE | 2022-04-22 09:01 | Anesthesia Procedure Note ---
Date of Service April 22, 2022 Anesthesia Post Epidural Note Vital Signs Vital Signs: Temp Pulse Resp BP Pulse Ox O2 Del Method 36.7 C 86 18 131/79 98 04/22/22 07:05 04/22/22 07:05 04/22/22 07:05 04/22/22 07:05 04/22/22 07:05 04/22/22 07:05 Pain Intensity Bilateral Head: Pain Intensity: 3 Bilateral Abdomen: Pain Intensity: 3 Notes Mental Status: alert / awake / arousable and participated in evaluation Nausea / Vomiting: adequately controlled Pain: adequately controlled Airway Patency, RR, SpO2: stable & adequate BP & HR: stable & adequate Hydration State: stable & adequate Anesthetic Complications: no major complications apparent and Pt Satisfied with anesthetic care Epidural: Removed without complications and With tip intact
[2022-04-22] MEDS ORDERED: diphenhydrAMINE Capsule 25 MG CAP ONE (09:16)
[2022-04-22] MEDS: diphenhydrAMINE Capsule 25 MG CAP PO SCH (09:18)
[2022-04-22] MEDS: CETIRIZINE HCL 10 MG TABLET PO SCH (09:18)
--- NOTE | 2022-04-22 12:51 | Obstetrical Progress Note ---
Date of Service April 22, 2022 Assessment & Plan (1) Normal course: Plan PPD #1 pt doing well no complaints Subjective Ambulation: ambulating normally Voiding: no voiding problems Passing Gas:: Yes Diet Tolerance:: regular diet Lochia:: Small Feeding Type:: breast feeding Review of Systems All systems reviewed & are unremarkable except as noted in HPI & below Physical Exam Constitutional WD/WN, vitals as above well developed and well nourished Eyes PERRL, conjunctivae normal, anicteric sclerae Neck trachea midline, no thyromegaly Respiratory normal respiratory effort, lungs clear to auscultation Auscultation: no crackles, no rales and no wheezes Cardiovascular RRR, no murmur, no edema Gastrointestinal (Abdomen) normal bowel sounds, soft, nontender, no hepatosplenomegaly Uterus is below umbilicus Musculoskeletal no cyanosis or clubbing, extremities motor strength 5/5 Skin no rashes, warm and dry Neurologic patellar DTR's 2+ bilat, sensation intact Psychiatric A+Ox3, euthymic affect Genitourinary normal external appearance Results & Data ([facility]) Vital Signs (Past 12 Hours) Vital Signs Temp Pulse Resp BP Pulse Ox O2 Del Method 04/22/22 07:05 36.7 C 86 18 131/79 98 Room Air 04/22/22 04:05 36.7 C 98 H 18 125/81 97 Room Air 04/22/22 01:10 36.8 C 108 H 18 123/84
[2022-04-22] MEDS ORDERED: bisacodyL 5 MG TABEC PO SCH (20:00)
[2022-04-22] MEDS ORDERED: DIPHENHYDRAMINE HCL 50 MG PO SCH (21:00)
[2022-04-23] MEDS: IBUPROFEN 600 MG TAB PO PRN (03:46)
[2022-04-23 07:12] LABS: Hematocrit (blood only) 33.4 % (34.1-44.9); Hemoglobin 11.1 g/dl (12.0-16.0)
[2022-04-23] MEDS: LABETALOL HCL 100 MG TAB PO SCH (08:10)
[2022-04-23] MEDS: CETIRIZINE HCL 10 MG TABLET PO SCH (08:10)
[2022-04-23] MEDS: diphenhydrAMINE Capsule 25 MG CAP PO SCH (08:10)
[2022-04-23] MEDS: DOCUSATE SODIUM 100 MG CAP PO SCH (08:10)
[2022-04-23] MEDS: FERROUS SULFATE 325 MG TAB PO SCH (08:10)
[2022-04-23] MEDS: PRENATAL VITAMIN 1 TAB PO SCH (08:10)
[2022-04-23] MEDS: PANTOprazole 40 MG TAB PO SCH (08:11)
[2022-04-23] MEDS: SERTRALINE HCL 50 MG TABLET PO SCH (08:11)
--- NOTE | 2022-04-23 08:25 | Obstetrical Progress Note ---
Date of Service April 23, 2022 Assessment & Plan Admission and Anticipated Discharge Date Admission Date: April 19, 2022 Subjective Patient is seen and examined. She feels well, no complaints. Ambulating without dizziness Voiding without difficulty Tolerating regular diet with out N&V Bleeding is minimal No fever/ chills/ CP/ SOB/ N&V/ Leg pain Pumping breast milk and bottle feeding without problems Lab Results 04/19/22 04/19/22 04/19/22 Range/Units 02:14 17:05 17:05 WBC 9.35 (4.8-10.8) K/ul RBC 3.89 L (3.93-5.22) M/uL Hgb 12.4 (12.0-16.0) g/dl Hct 37.1 (34.1-44.9) % MCV 95.4 (80.0-100.0) fL MCH 31.9 (25.0-34.0) pg MCHC 33.4 (32.0-36.0) g/dL RDW Std Deviation 47.9 H (36.4-46.3) fL RDW Coeff of Carri 13.7 (11.5-14.5) % Plt Count 210 (130-400) K/uL MPV 12.1 (9.4-12.3) fL Sodium (136-145) mmol/L Potassium (3.5-5.1) mmol/L Chloride (98-107) mmol/L Carbon Dioxide (21-32) mmol/L Anion Gap (3-11) BUN (6-23) mg/dl Creatinine (0.6-1.2) mg/dl Est Cr Clr Drug Dosing ml/min Est GFR ( Amer) ml/min Est GFR (Non-Af Amer) ml/min BUN/Creatinine Ratio (10-20) Glucose (70-99(Fasting)) mg/dl Uric Acid (2.6-7.2) mg/dl Calcium (8.5-10.1) mg/dl Total Bilirubin (0.2-1.0) mg/dl Direct Bilirubin (0-0.2) mg/dl AST (13-39) U/L ALT (7-52) U/L Alkaline Phosphatase (34-104) U/L Lactate Dehydrogenase (86-244) U/L Total Protein (6.0-8.3) gm/dl Albumin (3.4-5.0) gm/dl Globulin (2.5-4.0) gm/dl Albumin/Globulin Ratio (0.9-2) Ur Random Creatinine 116.8 mg/dl U Random Total Protein 25.3 H (0-11.9) mg/dl Protein/Creatinin Ratio 0.2 (0-0.2) SARS-CoV-2, RNA, NAAT (NEGATIVE) Blood Type A Positive Blood Type Recheck Antibody Screen NEGATIVE Crossmatch See Detail 04/19/22 04/19/22 04/19/22 Range/Units 18:59 18:59 20:14 WBC (4.8-10.8) K/ul RBC (3.93-5.22) M/uL Hgb (12.0-16.0) g/dl Hct (34.1-44.9) % MCV (80.0-100.0) fL MCH (25.0-34.0) pg MCHC (32.0-36.0) g/dL RDW Std Deviation (36.4-46.3) fL RDW Coeff of Carri (11.5-14.5) % Plt Count (130-400) K/uL MPV (9.4-12.3) fL Sodium 136 (136-145) mmol/L Potassium 4.1 (3.5-5.1) mmol/L Chloride 104 (98-107) mmol/L Carbon Dioxide 22 (21-32) mmol/L Anion Gap 10 (3-11) BUN 8 (6-23) mg/dl Creatinine 0.45 L (0.6-1.2) mg/dl Est Cr Clr Drug Dosing 257.7 ml/min Est GFR ( Amer) > 150.0 ml/min Est GFR (Non-Af Amer) 129.8 ml/min BUN/Creatinine Ratio 17.8 (10-20) Glucose 85 (70-99(Fasting)) mg/dl Uric Acid 5.7 (2.6-7.2) mg/dl Calcium 9.2 (8.5-10.1) mg/dl Total Bilirubin 0.2 (0.2-1.0) mg/dl Direct Bilirubin 0.0 (0-0.2) mg/dl AST 12 L (13-39) U/L ALT 9 (7-52) U/L Alkaline Phosphatase 73 (34-104) U/L Lactate Dehydrogenase 144 (86-244) U/L Total Protein 6.3 (6.0-8.3) gm/dl Albumin 3.3 L (3.4-5.0) gm/dl Globulin 3.0 (2.5-4.0) gm/dl Albumin/Globulin Ratio 1.1 (0.9-2) Ur Random Creatinine mg/dl U Random Total Protein (0-11.9) mg/dl Protein/Creatinin Ratio (0-0.2) SARS-CoV-2, RNA, NAAT (NEGATIVE) Blood Type Blood Type Recheck A Positive Antibody Screen Crossmatch 04/20/22 04/22/22 04/23/22 Range/Units 19:40 06:59 06:57 WBC 10.42 (4.8-10.8) K/ul RBC 3.34 L (3.93-5.22) M/uL Hgb 10.6 L 11.1 L (12.0-16.0) g/dl Hct 32.3 L 33.4 L (34.1-44.9) % MCV 96.7 (80.0-100.0) fL MCH 31.7 (25.0-34.0) pg MCHC 32.8 (32.0-36.0) g/dL RDW Std Deviation 49.7 H (36.4-46.3) fL RDW Coeff of Carri 14.0 (11.5-14.5) % Plt Count 175 (130-400) K/uL MPV 11.4 (9.4-12.3) fL Sodium (136-145) mmol/L Potassium (3.5-5.1) mmol/L Chloride (98-107) mmol/L Carbon Dioxide (21-32) mmol/L Anion Gap (3-11) BUN (6-23) mg/dl Creatinine (0.6-1.2) mg/dl Est Cr Clr Drug Dosing ml/min Est GFR ( Amer) ml/min Est GFR (Non-Af Amer) ml/min BUN/Creatinine Ratio (10-20) Glucose (70-99(Fasting)) mg/dl Uric Acid (2.6-7.2) mg/dl Calcium (8.5-10.1) mg/dl Total Bilirubin (0.2-1.0) mg/dl Direct Bilirubin (0-0.2) mg/dl AST (13-39) U/L ALT (7-52) U/L Alkaline Phosphatase (34-104) U/L Lactate Dehydrogenase (86-244) U/L Total Protein (6.0-8.3) gm/dl Albumin (3.4-5.0) gm/dl Globulin (2.5-4.0) gm/dl Albumin/Globulin Ratio (0.9-2) Ur Random Creatinine mg/dl U Random Total Protein (0-11.9) mg/dl Protein/Creatinin Ratio (0-0.2) SARS-CoV-2, RNA, NAAT NEGATIVE (NEGATIVE) Blood Type Blood Type Recheck Antibody Screen Crossmatch Vital Signs Temp Pulse Pulse Resp BP BP Pulse Ox 04/23/22 07:11 04/23/22 07:11 36.6 C 106 H 18 139/82 98 04/23/22 03:00 36.6 C 96 H 16 141/88 H 98 04/22/22 23:15 36.6 C 104 H 16 135/88 99 04/22/22 22:55 36.6 C 101 H 20 144/83 H 97 04/22/22 21:00 148/83 H O2 Del Method 04/23/22 07:11 Room Air 04/23/22 07:11 Room Air 04/23/22 03:00 Room Air 04/22/22 23:15 Room Air 04/22/22 22:55 Room Air 04/22/22 21:00 PE: General: Alert, orientedx3, NAD Abd: soft, NT, fundus firm, below Umbilicus Perineum intact, Lochia rubra minimal Ext; NT, no edema AP: 37 yo s/p , ppd# 2 VSS Afebrile doing well Continue routine care All questions were answered Discussed when to call. D/C home , f/u in office. Results & Data ([facility]) Vital Signs (Past 12 Hours) Vital Signs Temp Pulse Pulse Resp BP BP Pulse Ox 04/23/22 07:11 04/23/22 07:11 36.6 C 106 H 18 139/82 98 04/23/22 03:00 36.6 C 96 H 16 141/88 H 98 04/22/22 23:15 36.6 C 104 H 16 135/88 99 04/22/22 22:55 36.6 C 101 H 20 144/83 H 97 04/22/22 21:00 148/83 H O2 Del Method 04/23/22 07:11 Room Air 04/23/22 07:11 Room Air 04/23/22 03:00 Room Air 04/22/22 23:15 Room Air 04/22/22 22:55 Room Air 04/22/22 21:00
== END 2022-04-23 11:14 | disposition home or self-care (01) | DRG 807 ==
LOC: 4S1 15:57 → 4E2 04-22 01:24